=== PATIENT | female | born 1950 ===

== ENCOUNTER 2023-01-02 09:15 | Inpatient (IN) | payer OTHER ==
[~2023-01-02] VITALS: Ht 160 cm; Wt 92.5 kg
[2023-01-02] MEDS ORDERED: SIMVAST PO (10:16)
[2023-01-02] MEDS ORDERED: AMLODIPINE-OLM1 EAC2 PO (10:16)
[2023-01-02] MEDS ORDERED: HYDROCHLOROTH12.5 MG PO (10:17)
[2023-01-02] MEDS ORDERED: TOPROL XL25 M1 PO (10:17)
[2023-01-09] MEDS ORDERED: PERCOCET 2.5-31 EACH PO (17:43)
[2023-01-09] MEDS ORDERED: DUI500 PO (17:43)
[2023-01-09] MEDS ORDERED: ELIQUIS2.5 MG PO (17:43)
== END 2023-01-09 21:31 | disposition home or self-care (01) | DRG 470 ==
LOC: O/R 01-07 05:43 → SURG 01-07 05:43
PROVIDERS: ADMIT Orthopaedic Surgery; ATTEND Orthopaedic Surgery
PROC: 0SRC0J9 Replacement of Right Knee Joint with Synthetic Substitute, Cemented, Open Approach (ICD-10-PCS; principal; 2023-01-07 20:45)
DX: M17.11 Unilateral primary osteoarthritis, right knee (principal); D62 Acute posthemorrhagic anemia; M81.0 Age-related osteoporosis without current pathological fracture; M22.11 Recurrent subluxation of patella, right knee; I10 Essential (primary) hypertension; Z96.651 Presence of right artificial knee joint

== ENCOUNTER 2023-04-29 05:58 | Day surgery (SDC) | payer OTHER ==
[~2023-04-29] VITALS: Ht 160 cm; Wt 92.5 kg
[~2023-04-29 05:58] MED LIST: AMLODIPINE-OLM1 EAC2 PO; DUI500 PO; ELIQUIS2.5 MG PO; HYDROCHLOROTH12.5 MG PO; PERCOCET 2.5-31 EACH PO; SIMVAST PO; TOPROL XL25 M1 PO
[2023-04-29] MEDS ORDERED: PERCOCET 5-3251 EACH PO (10:38)
[2023-04-29] MEDS ORDERED: ASA325 M1 PO (10:38)
[2023-04-29] MEDS ORDERED: DUI500 PO (10:38)
== END 2023-04-29 16:00 | disposition home or self-care (01) ==
LOC: CIR.AMB 05:58
PROVIDERS: ATTEND Orthopaedic Surgery
DX: M25.461 Effusion, right knee (principal); M24.561 Contracture, right knee; M17.11 Unilateral primary osteoarthritis, right knee; Z96.651 Presence of right artificial knee joint; Z20.822 Contact with and (suspected) exposure to COVID-19